=== PATIENT | female | born 1980 | race Caucasian/White ===

== ENCOUNTER 2022-05-31 07:50 | Emergency (ER) | payer OTHER, SELFPAY ==
[2022-05-31] VITALS (12 sets, daily range): BP systolic 110–144; BP diastolic 80–91; PULSE 80–106; RESP 11–25; TEMP 36.6; O2SAT 98–100
--- NOTE | ~2022-05-31 | XR_ITS ---
Clinical Indication: Chest pain PA and lateral views of the chest: Comparison: 05/09/2011 Findings: The lungs are clear, without evidence of focal consolidation or pleural effusion. Cardiome diastinal silhouette is within normal limits. Bones and soft tissues are unremarkable. Impression: Normal chest. Reviewed, dictated and finalized at [facility]. INUOUS PROCESS [employer] Impression: Normal chest.
--- NOTE | 2022-05-31 07:55 | ECG_ITS ---
Measurements Intervals [place] Rate: 92 P: 65 [place]: 145 QRS: 42 QRSD: 81 T: -33 QT: 344 QTc: 427 Interpretive Statements SINUS RHYTHM POSSIBLE LEFT ATRIAL ENLARGEMENT LOW-VOLTAGE QRS IN LIMB LEADS NONSPECIFIC T-WAVE ABNORMALITY BORDERLINE ECG NO PREVIOUS ECG AVAILABLE FOR COMPARISON Electronically Signed On 05-31-2022 16:16:16 [employer]LLING MACHINE OPERATOR by Sage Camp M.D.
--- NOTE | 2022-05-31 08:50 | ED.CHESTPAIN ---
HPI - Chest Pain General Chief Complaint: Chest Pain Stated Complaint: Chest Pain Time Seen by Provider: 05/31/22 08:22 Source: patient, RN notes reviewed and old records reviewed Mode of arrival: ambulatory Limitations: no limitations History of Present Illness HPI narrative: This is a 41 year old female who presents for evaluation of left chest pain. This pain started today . She reports pain is located under her left breast. She has sharp pain that last approximately 30 seconds, and subsides becoming a dull ache. Pain is intermittent. She is unaware of any exacerbating factors or alleviating factors. She has not taken any medication for pain. She denies having pain now. She denies sob, nausea, vomiting, cough or URI symptoms. Related Data Allergies Allergy/AdvReac Type Severity Reaction Status Date / Time No Known Allergies Allergy Unverified 12/15/17 11:49 Review of Systems Constitutional: Constitutional: Denies weakness Cardiovascular: Cardiovascular: Denies syncope, Denies rapid heart rate, Denies irregular heart rhythm, Denies leg edema and Denies dyspnea Respiratory: Respiratory: Denies chest congestion, Denies hemoptysis, Denies excessive phlegm production and Denies dyspnea Gastrointestinal: Gastrointestinal: Denies abdominal pain, Denies hematochezia, Denies diarrhea and Denies vomiting Genitourinary: Genitourinary: Denies hematuria and Denies dysuria Musculoskeletal: Musculoskeletal: Denies joint swelling, Denies loss of height and Denies muscle weakness Neurologic: Denies syncope, Denies focal weakness and Denies weakness PMFSH Past Medical History Medical History (Updated 05/31/22 @ 12:05 by Eveline Currie MD) Mitral valve prolapse Social History Social History (Updated 05/31/22 @ 08:57 by Eveline Currie MD) Smoking status: Former smoker Substance use: never Exam Const: General: healthy appearing, no acute distress and alert Nutritional Appearance: well nourished Orientation/consciousness: patient oriented x3 Limitations: no limitations HENMT: Head: normal to inspection Eyes: EOM: EOMs intact bilaterally Chest: Chest palpation & inspection: tenderness (left anterior rib under left breast) Resp: Effort & Inspection: normal respiratory effort Auscultation: clear to auscultation bilaterally Cardio: Rate: regular rate Rhythm: regular rhythm Heart sounds: no murmurs GI: GI Palp: Yes Soft to palpation, No Tenderness to palpation present (GI), No Guarding due to palpation present (GI) and No Rigid due to palpation Auscultation: normal bowel sounds Back/Spine/Pelvis: Back: no CVA tenderness Skin: General skin exam: normal color Rashes: no rashes Wounds: no wounds Neuro: General: patient oriented x3, moves all extremities and CN's II-XI intact bilaterally Extrem: General: normal to inspection Psych: Mental Status: mental status grossly normal Affect: normal affect Attitude: cooperative Course Reevaluation(s) Reevaluation #1: I discussed with patient that labs were unremarkable. She has atypical pain that is likely related to her chest wall. She states she will follow up with PCP Date: 05/31/22 Time: 12:03 Vital Signs Vital signs: Vital Signs Pulse Rate 98 05/31/22 07:55 Respiratory Rate 12 05/31/22 07:55 Blood Pressure 144/91 H 05/31/22 07:55 Pulse Oximetry 100 05/31/22 07:55 Oxygen Delivery Room Air 05/31/22 07:55 Temperature 98 F 05/31/22 12:31 Pulse Rate 85 05/31/22 12:31 Respiratory Rate 13 05/31/22 12:31 Blood Pressure 113/80 05/31/22 12:31 Pulse Oximetry 100 05/31/22 12:31 Oxygen Delivery Room Air 05/31/22 08:13 MDM - Chest Pain MDM Narrative Medical decision making narrative: Patient presents with chest pain. labs, EKG, chest xray ordered for evaluation. cbc is normal. d dimer is negative. Troponin negative x 2. Patient 's symptoms are atypical and likely related to chest wall. No risk factors for
[2022-05-31 08:54] LABS: Basophils Percent Auto 0.4 % (0.2-1.2); Eosinophils Absolute Auto 0.2 K/mm3 (0-0.3); Eosinophils Percent Auto 3.4 % (0-4.4); Hematocrit 44.5 % (37.0-47.0); Hemoglobin 14.9 g/dL (12.0-15.0); Immature Granulocyte Absolute 0.02 K/mm3 (0.00-0.031); Immature Granulocyte Percent A 0.3 % (0-0.5); Lymphocytes Absolute Auto 2.16 K/mm3 (0.9-3.2); Lymphocytes Percent Auto 32.3 % (18.3-44.2); Mean Corpuscular HGB Conc 33.5 g/dl (32-36); Mean Corpuscular Hemoglobin 32.8 pg (26-34); Mean Platelet Volume 9.4 fl (7.4-10.4); Monocytes Absolute Auto 0.6 K/mm3 (0.1-0.6); Neutrophils Absolute Auto 3.6 K/mm3 (1.3-6.7); Neutrophils Percent Auto 54.6 % (45.5-73.1); Platelet Count Result 276 k/mm3 (150-375); Red Blood Count 4.54 M/mm3 (4.2-5.4); Red Cell Distribution Width 12.3 % (11.5-14.5); White Blood Count 6.7 K/mm3 (4.5-10.0)
[2022-05-31 09:07] LABS: Alanine Aminotransferase 18 U/L (6-35); Albumin Level 4.3 g/dL (3.5-5.1); Alkaline Phosphatase 64 U/L (38-126); Anion Gap 4 mmol/L (8-16); Aspartate Amino Transferase 24 U/L (14-36); Bilirubin,Total 0.7 mg/dL (0.2-1.3); Blood Urea Nitrogen 12 mg/dL (7-17); Calcium 8.9 mg/dL (8.4-10.2); Carbon Dioxide 29 mmol/L (22-30); Chloride 101 mmol/L (98-107); Estimated CRCL calculation 77 ml/min; Estimated Glomerular Filt Rate > 60; Glucose 104 mg/dL (65-110); Lipase 145 U/L (23-300); Potassium 3.8 mmol/L (3.4-5.0); Sodium 134 mmol/L (137-145)
[2022-05-31 09:08] LABS: INR 0.9; Prothrombin Time 12.2 Seconds (11.1-14.7)
[2022-05-31 09:09] LABS: Partial Thromboplastin Time 28.2 SECONDS (22.3-36.8)
[2022-05-31 09:16] LABS: D Dimer < 0.27 ug/mL (<0.48)
[2022-05-31 09:18] LABS: Troponin I < 0.012 ng/mL (0.000-0.034)
[2022-05-31 11:41] LABS: Troponin I < 0.012 ng/mL (0.000-0.034)
== END 2022-05-31 12:35 | disposition home or self-care (01) ==
PROVIDERS: Emergency Provider General Practice
DX: R07.89 Other chest pain (principal); I34.1 Nonrheumatic mitral (valve) prolapse; Z87.891 Personal history of nicotine dependence; R94.31 Abnormal electrocardiogram [ECG] [EKG]
CPT/HCPCS: 36415; 71046; 80053; 83690; 84484; 85025; 85380; 85610; 85730; 93005; 99284